=== PATIENT | male | born 1970 | race Caucasian/White ===

== ENCOUNTER 2018-10-28 17:21 | Emergency (ER) | payer BC, OTHER ==
[~2018-10-28] VITALS: Ht 182.9 cm; Wt 150.0 kg
--- NOTE | 2018-10-28 17:41 | ED General ---
General Stated Complaint: RT SIDE PAIN,SOB Source of Information: Patient History of Present Illness Date Seen by Provider: Oct 28, 2018 Time Seen by Provider: 17:30 Initial Comments Patient is a 48-year-old male who comes to the emergency department with musculoskeletal pain over the right rib cage. He has been having pain constantly over the last 4 or 5 days. Pain is worse when he takes a deep breath and when he moves. Pain is worse when he lays on his side and puts pressure in that area. He has not had shortness of breath. He does not complain of chest pain. No recent trauma. Denies prior history of similar symptoms. No recent strenuous activity. Allergies and Home Medications Allergies Coded Allergies: No Known Drug Allergies (Unverified , 10/28/18) Patient Home Medication List Home Medication List Reviewed: Yes Review of Systems Review of Systems Constitutional: no symptoms reported EENTM: no symptoms reported Respiratory: no symptoms reported Cardiovascular: no symptoms reported Gastrointestinal: no symptoms reported Genitourinary: no symptoms reported Musculoskeletal: see HPI Skin: no symptoms reported Physical Exam Vital Signs Vital Signs - First Documented 10/28/18 18:04 Temp 36.7 Pulse 123 Resp 18 B/P (MAP) 147/89 (108) Pulse Ox 96 O2 Delivery Room Air Capillary Refill : Height, Weight, BMI Height: '" Weight: lbs. oz. kg; BMI Method: General Appearance: No Apparent Distress, WD/WN Eyes: Bilateral Eye Normal Inspection, Bilateral Eye PERRL HEENT: PERRL/EOMI, TMs Normal, Normal ENT Inspection Neck: Full Range of Motion, Normal Inspection Respiratory: Lungs Clear, Normal Breath Sounds, No Accessory Muscle Use, No Respiratory Distress, Other (palpable point tenderness over the anterior lateral rib cage ) Cardiovascular: Regular Rate, Rhythm, No Edema Gastrointestinal: Non Tender, Soft Back: Normal Inspection, No Vertebral Tenderness Extremity: Normal Capillary Refill Neurologic/Psychiatric: Alert, Oriented x3 Skin: Normal Color, Warm/Dry Progress/Results/Core Measures Suspected Sepsis SIRS Temperature: Pulse: Respiratory Rate: Laboratory Tests 10/28/18 17:40: White Blood Count 10.1 Blood Pressure / Mean: Laboratory Tests 10/28/18 17:40: Creatinine 1.00, Platelet Count 350 Results/Orders Lab Results Laboratory Tests Test 10/28/18 17:38 10/28/18 17:40 Range/Units Urine Color DARK YELLOW Urine Clarity CLEAR Urine pH 5.5 5-9 Urine Specific Ten[place] >=1.030 1.016-1.022 Urine Protein NEGATIVE NEGATIVE Urine Glucose (UA) NEGATIVE NEGATIVE Urine Ketones NEGATIVE NEGATIVE Urine Nitrite NEGATIVE NEGATIVE Urine Bilirubin 1+ H NEGATIVE Urine Urobilinogen 4.0 NORMAL MG/DL Urine Leukocyte Esterase NEGATIVE NEGATIVE Urine RBC (Auto) NEGATIVE NEGATIVE Urine RBC NONE /HPF Urine WBC RARE /HPF Urine Squamous Epithelial Cells NONE /HPF Urine Crystals NONE /LPF Urine Bacteria NEGATIVE /HPF Urine Casts NONE /LPF Urine Mucus MODERATE H /LPF Urine Culture Indicated NO White Blood Count 10.1 4.3-11.0 10^3/uL Red Blood Count 5.15 4.35-5.85 10^6/uL Hemoglobin 15.8 13.3-17.7 G/DL Hematocrit 45 40-54 % Mean Corpuscular Volume 88 80-99 FL Mean Corpuscular Hemoglobin 31 25-34 PG Mean Corpuscular Hemoglobin Concent 35 32-36 G/DL Red Cell Distribution Width 12.2 10.0-14.5 % Platelet Count 350 130-400 10^3/uL Mean Platelet Volume 9.4 7.4-10.4 FL Neutrophils (%) (Auto) 69 42-75 % Lymphocytes (%) (Auto) 22 12-44 % Monocytes (%) (Auto) 8 0-12 % Eosinophils (%) (Auto) 1 0-10 % Basophils (%) (Auto) 1 0-10 % Neutrophils # (Auto) 6.9 1.8-7.8 X 10^3 Lymphocytes # (Auto) 2.2 1.0-4.0 X 10^3 Monocytes # (Auto) 0.8 0.0-1.0 X 10^3 Eosinophils # (Auto) 0.1 0.0-0.3 10^3/uL Basophils # (Auto) 0.1 0.0-0.1 10^3/uL Sodium Level 141 135-145 MMOL/L Potassium Level 4.1 3.6-5.0 MMOL/L Chloride Level 100 98-107 MMOL/L Carbon Dioxide Level 25 21-32 MMOL/L Anion Gap 16 H 5-14 MMOL/L Blood Urea Nitrogen 8 7-18 MG/DL Creatinine 1.00 0.60-1.30 MG/DL Estimat Glomerular Filtration Rate > 60 BUN/Creatinine Ratio 8 Glucose Level 158 H 70-105 MG/DL Calcium Level 9.5 8.5-10.1 MG/DL Troponin I < 0.30 <0.30 NG/ML My Orders Orders - MILLER ALANIS DO Urinalysis (10/28/18 17:35) Troponin I (10/28/18 17:35) Ekg Tracing (10/28/18 17:35) Cbc With Automated Diff (10/28/18 17:35) Basic Metabolic Panel (10/28/18 17:35) Ribs/Unilateral With Chest (10/28/18 17:35) Fibrin Degradation Products (10/28/18 18:01) Vital Signs/I&O 10/28/18 18:04 Temp 36.7 Pulse 123 Resp 18 B/P (MAP) 147/89 (108) Pulse Ox 96 O2 Delivery Room Air Capillary Refill : Progress Note : Time: 17:41 Progress Note Patient is seen and examined. He is having point tenderness in the anterior lateral right rib cage. Symptoms have been for over 4 days. Will check single troponin and EKG. We'll do rib series including chest x-ray. 18:00: ROCCO to Dr. Ayala. EKG reviewed and no acute findings. Labs/Xrays pending. ECG Initial ECG Impression Date: Oct 28, 2018 Initial ECG Impression Time: 17:50 Initial ECG Rhythm: Normal Sinus Departure Impression Primary Impression: Rib pain Disposition: HOME, SELF-CARE Condition: Improved Departure-Patient Inst. Referrals: TANISHA MORENO DO (PCP/Family) Primary Care Physician MILLER ALANIS DO Oct 28, 2018 17:41
[2018-10-28 17:51] LABS: HEMATOCRIT 45 % (40-54); HEMOGLOBIN 15.8 G/DL (13.3-17.7); LYMPHOCYTES % (AUTO) 22 % (12-44); MEAN CORPUSCULAR HEMOGLOBIN 31 PG (25-34); MEAN CORPUSCULAR HGB CONC 35 G/DL (32-36); MEAN CORPUSCULAR VOLUME 88 FL (80-99); MEAN PLATELET VOLUME 9.4 FL (7.4-10.4); NEUTROPHILS % (AUTO) 69 % (42-75); PLATELET COUNT 350 10^3/uL (130-400); RED CELL DISTRIBUTION WIDTH 12.2 % (10.0-14.5); WHITE BLOOD COUNT 10.1 10^3/uL (4.3-11.0)
[2018-10-28 17:52] LABS: BASOPHILS # (AUTO) 0.1 10^3/uL (0.0-0.1); BASOPHILS % (AUTO) 1 % (0-10); EOSINOPHILS # (AUTO) 0.1 10^3/uL (0.0-0.3); EOSINOPHILS % (AUTO) 1 % (0-10); LYMPHOCYTES # (AUTO) 2.2 X 10^3 (1.0-4.0); MONOCYTES # (AUTO) 0.8 X 10^3 (0.0-1.0); MONOCYTES % (AUTO) 8 % (0-12); NEUTROPHILS # (AUTO) 6.9 X 10^3 (1.8-7.8)
[2018-10-28 17:58] LABS: CLARITY,URINE CLEAR; COLOR,URINE DARK YELLOW
[2018-10-28 17:59] LABS: BILIRUBIN,URINE 1+ (NEGATIVE); GLUCOSE, URINE (UA) NEGATIVE (NEGATIVE); KETONES,URINE NEGATIVE (NEGATIVE); LEUKOCYTE ESTERASE ,URINE NEGATIVE (NEGATIVE); NITRITE,URINE NEGATIVE (NEGATIVE); PH,URINE 5.5 (5-9); PROTEIN,URINE NEGATIVE (NEGATIVE)
[2018-10-28 18:00] LABS: BACTERIA,URINE NEGATIVE /HPF; WBC,URINE RARE /HPF
--- NOTE | 2018-10-28 18:12 | Diagnostic Imaging Report ---
INDICATION: Right rib pain. EXAMINATION: AP and oblique views of right ribs are obtained. There is no displaced right rib fracture. There is no abnormal lytic or sclerotic focus. No pleural reaction is identified. There is no evidence of pulmonary contusion. Single AP view of the chest reveals bilaterally clear lungs. There is no evidence of pneumothorax or significant pleural fluid. IMPRESSION: No acute abnormalities detected. If further evaluation is warranted, consideration could be given to CT scan. Dictated by: Dictated on workstation # [id number]
[2018-10-28 18:16] LABS: BUN/CREATININE RATIO 8; CALCIUM 9.5 MG/DL (8.5-10.1); CARBON DIOXIDE 25 MMOL/L (21-32); CHLORIDE 100 MMOL/L (98-107); GFR ESTIMATED > 60; GLUCOSE 158 MG/DL (70-105); POTASSIUM 4.1 MMOL/L (3.6-5.0); SODIUM 141 MMOL/L (135-145)
[2018-10-28] MEDS ORDERED: HOLD METFORMIN - RECEIVED CONTRAST 20 ML VIAL IV SCH (20:00)
[2018-10-28] MEDS ORDERED: IOHEXOL 350 MG/ML 150 ML (OMNIPAQUE 350) VIAL IV ONE (20:00)
[2018-10-28] MEDS ORDERED: CATHETER FLUSH 10 ML SYR IV PRN (20:00)
[2018-10-28] MEDS ORDERED: NS 100 ML (IVPB) BAG IV ONE (20:00)
[2018-10-28] MEDS ORDERED: KETOROLAC 30 MG/ML VIAL IVP ONE (20:30)
[2018-10-28] MEDS ORDERED: ACETAMINOPHEN 325 MG TABLET PO ONE (20:30)
--- NOTE | 2018-10-28 20:31 | Diagnostic Imaging Report ---
PROCEDURE: CT angiography of the chest with contrast. TECHNIQUE: Multiple contiguous axial images were obtained through the chest after uneventful bolus administration of intravenous contrast. 3D reconstructed CTA MIP acquisitions were also performed. Auto Exposure Controls were utilized during the CT exam to meet ALARA standards for radiation dose reduction. INDICATION: Right chest pain for 4 days There is good opacification of pulmonary arteries without intraluminal filling defect. Thoracic aorta has a normal appearance. There is no evidence of pleural or pericardial fluid. The lungs are clear. There is no evidence of fracture or acute osseous abnormality in the thorax. Note is made of azygos fissure which is a normal variant. Upper abdominal sections reveal extensive low density in the liver indicating hepatic steatosis. IMPRESSION: No CTA evidence of pulmonary embolism or other acute abnormality in the thorax. Note is made of hepatic steatosis. Dictated by: Dictated on workstation # [id number]
[2018-10-28] MEDS ORDERED: DICL50TA4 PO (20:47)
[2018-10-28 20:50] VITALS: BP 124/84
== END 2018-10-28 20:50 | disposition home or self-care (01) ==
LOC: ER FS 17:23
DX: R07.81 Pleurodynia (principal)
CPT/HCPCS: 36415; 71101; 71275; 80048; 81000; 84484; 85025; 85379; 93005